=== PATIENT | male | born 1945 | race African-American/Black ===

== ENCOUNTER → 2016-12-21 | Outpatient (CLI) | payer MEDICARE ==
[~2016-12-21] MED LIST: AMLO10TA4 PO; ASPI-482 PO; ATOR10TA60 PO; CLOB15CR TP; IOHEXOL 240 MG/ML 50ML VIAL. PO ONE; LISI40TA PO
--- NOTE | 2016-12-21 11:07 | KCIC ---
PROCEDURE CT abdomen and pelvis without contrast. HISTORY Periumbilical pain times 5-6 days. Weight loss of 15 pounds in 1 month. History of sarcoidosis. TECHNIQUE Helical CT imaging of the abdomen and pelvis is performed without IV contrast. Oral contrast is given. PQRS: One or more the following individualized dose reduction techniques were utilized for the study: 1. Automated exposure control. 2. Adjustment of the mA and/or kV according to patient size. 3. Use of iterative reconstruction technique. COMPARISON None. FINDINGS Lung bases are clear. Cardiac size normal. There are 2 subcentimeter right cardiophrenic lymph nodes. There is a 8 millimeter right paraesophageal lymph node. Evaluation of solid organs may be limited without IV contrast. The liver, spleen, gallbladder, pancreas, adrenal clips, and abdominal aortic caliber are normal. There is no hydronephrosis. There is cortical scarring of the left kidney. Stomach unremarkable. No dilated small bowel. There is severe sigmoid and descending colon diverticulosis. The appendix is normal. There is a left para-aortic soft tissue mass that is probably matted adenopathy. There are other enlarged retroperitoneal lymph nodes. The mass measures up to 2.6 x 4.2 by 7.8 centimeters, AP, and transverse, and craniocaudal, respectively. No mesenteric adenopathy is seen. Urinary bladder is not thick walled. Question low lying bladder. The prostate is not seen. There is no inguinal adenopathy. No pelvic free fluid. Reactive endplate changes of L4/L5. No acute bone abnormality. IMPRESSION 1. Left para-aortic adenopathy. Considerations include lymphoproliferative disorder or metastatic disease. 2. Severe distal colon diverticulosis without evidence of diverticulitis. Electronically signed by: Ar Cano MD (Dec 21, 2016 11:05:23)
== END | disposition home or self-care (01) ==
LOC: KCIC CT 09:29
PROVIDERS: ATTEND Internal Medicine
DX: R10.33 Periumbilical pain (principal)
CPT/HCPCS: 74176; Q9966